=== PATIENT | male | born 1950 | race Caucasian/White ===

== ENCOUNTER 2022-12-11 06:06 | Day surgery (SDC) | payer OTHER, BC ==
[2022-12-05 13:34] VITALS: BMI 28.3
[2022-12-11 06:44] VITALS: RESP 16
[2022-12-11] MEDS ORDERED: LIDOCAINE HCL 2% (20ML MULTI-DOSE VIAL) ONE (07:16)
[2022-12-11] MEDS ORDERED: MIDAZOLAM HCL 2 MG/2 ML SINGLE DOSE VIAL ONE (07:55)
[2022-12-11] MEDS ORDERED: PROPOFOL 20 ML ONE ×3 (08:05→08:14)
[2022-12-11 09:19] VITALS: BP 114/64; PULSE 67; TEMP 97.4
== END 2022-12-11 09:15 | disposition home or self-care (01) ==
LOC: FASU 06:06
PROVIDERS: ATTEND Orthopaedic Surgery Hand Surgery
PROC: 01N50ZZ Release Median Nerve, Open Approach (ICD-10-PCS; principal; 2022-12-11 08:15)
DX: G56.01 Carpal tunnel syndrome, right upper limb (principal)

== ENCOUNTER 2023-02-19 05:34 | Day surgery (SDC) | payer OTHER, BC ==
[2023-02-17 15:02] VITALS: BMI 27.4
[2023-02-19] MEDS ORDERED: ONDANSETRON 4 MG/2 ML VIAL IVPUSH PRN (06:57)
[2023-02-19] MEDS ORDERED: oxyCODONE HCL 5 MG TABLET PO PRN (06:57)
[2023-02-19] MEDS ORDERED: LACTATED RINGERS SOLUTION 1,000 ML IV SCH (07:00)
[2023-02-19] MEDS ORDERED: BUPIVACAINE HCL/PF 0.5% (5MG/ML) 10 ML VIAL ONE (07:08)
[2023-02-19] MEDS ORDERED: LIDOCAINE HCL 2% (20ML MULTI-DOSE VIAL) ONE (07:08)
[2023-02-19] MEDS ORDERED: BUPIVACAINE HCL/PF 0.25% (2.5MG/ML) 10 ML VIAL ONE (07:08)
[2023-02-19] MEDS ORDERED: MIDAZOLAM HCL 2 MG/2 ML SINGLE DOSE VIAL ONE (07:24)
[2023-02-19] MEDS ORDERED: PROPOFOL 20 ML ONE (07:24)
[2023-02-19] MEDS ORDERED: DEXAMETHASONE SOD PHOSPHATE 4 MG/1 ML VIAL ONE (07:57)
[2023-02-19] MEDS ORDERED: KETOROLAC TROMETHAMINE 30 MG/1 ML VIAL ONE (07:57)
[2023-02-19 08:33] VITALS: TEMP 97
[2023-02-19 09:04] VITALS: BP 118/66; PULSE 61; RESP 18
== END 2023-02-19 09:04 | disposition home or self-care (01) ==
LOC: FASU 05:34
PROVIDERS: ATTEND Orthopaedic Surgery Hand Surgery
PROC: 01N50ZZ Release Median Nerve, Open Approach (ICD-10-PCS; principal; 2023-02-19 08:01)
DX: G56.02 Carpal tunnel syndrome, left upper limb (principal)